=== PATIENT | male | born 1995 | race Caucasian/White ===

== ENCOUNTER 2019-04-05 09:37 | Emergency (ER) | payer BC, OTHER ==
[~2019-04-05] VITALS: Ht 182.8 cm; Wt 109.1 kg
--- NOTE | 2019-04-05 10:09 | ED Abdominal Pain ---
General Chief Complaint: Abdominal/GI Problems Stated Complaint: RT ABDOMEN PAIN Source of Information: Patient Exam Limitations: No Limitations History of Present Illness Date Seen by Provider: Apr 05, 2019 Time Seen by Provider: 10:05 Initial Comments This 24-year-old white male presents with complaint of sudden severe left flank pain radiating into his testicle. Patient has associated nausea and an episode of vomiting prior to presentation emergency department. The patient's pain began an hour ago. Past medical history was noncontributory. Patient has had no associated fever or chills. He has had no similar episode in the past. Allergies and Home Medications Allergies Coded Allergies: No Known Drug Allergies (Unverified , 04/05/19) Patient Home Medication List Home Medication List Reviewed: Yes Review of Systems Review of Systems Constitutional: No chills, No fever EENTM: No Symptoms Reported Respiratory: Denies Cough Cardiovascular: Denies Chest Pain Gastrointestinal: Denies Abdominal Pain; Nausea, Vomiting Genitourinary: Flank Pain (left) Musculoskeletal: no symptoms reported Skin: no symptoms reported Psychiatric/Neurological: No Symptoms Reported Endocrine: No Symptoms Reported Hematologic/Lymphatic: No Symptoms Reported Past [place]-Mgpsao-Edyady Hx Past Med/Social Hx: Reviewed Nursing Past Med/Soc Hx Patient Social History Recent Foreign Travel: No Contact w/Someone Who Travel: No Physical Exam Vital Signs Vital Signs - First Documented 04/05/19 10:05 Temp 36.3 Pulse 85 Resp 18 B/P (MAP) 156/85 (108) Pulse Ox 85 Capillary Refill : Height/Weight/BMI Height: '" Weight: lbs. oz. kg; BMI Method: General Appearance: WD/WN, moderate distress HEENT: normal ENT inspection Neck: normal inspection Respiratory: lungs clear Cardiovascular: regular rate, rhythm Gastrointestinal: normal bowel sounds, non tender, soft Extremities: normal range of motion Back: normal inspection Neurologic/Psychiatric: no motor/sensory deficits, alert Skin: normal color, warm/dry Progress/Results/Core Measures Results/Orders Lab Results Laboratory Tests Test 04/05/19 09:59 04/05/19 11:30 Range/Units White Blood Count 8.7 4.3-11.0 10^3/uL Red Blood Count 4.81 4.35-5.85 10^6/uL Hemoglobin 14.0 13.3-17.7 G/DL Hematocrit 41 40-54 % Mean Corpuscular Volume 85 80-99 FL Mean Corpuscular Hemoglobin 29 25-34 PG Mean Corpuscular Hemoglobin Concent 34 32-36 G/DL Red Cell Distribution Width 12.9 10.0-14.5 % Platelet Count 369 130-400 10^3/uL Mean Platelet Volume 9.1 7.4-10.4 FL Neutrophils (%) (Auto) 66 42-75 % Lymphocytes (%) (Auto) 25 12-44 % Monocytes (%) (Auto) 8 0-12 % Eosinophils (%) (Auto) 1 0-10 % Basophils (%) (Auto) 0 0-10 % Neutrophils # (Auto) 5.8 1.8-7.8 X 10^3 Lymphocytes # (Auto) 2.2 1.0-4.0 X 10^3 Monocytes # (Auto) 0.7 0.0-1.0 X 10^3 Eosinophils # (Auto) 0.1 0.0-0.3 10^3/uL Basophils # (Auto) 0.0 0.0-0.1 10^3/uL Sodium Level 139 135-145 MMOL/L Potassium Level 3.9 3.6-5.0 MMOL/L Chloride Level 107 98-107 MMOL/L Carbon Dioxide Level 18 L 21-32 MMOL/L Anion Gap 14 5-14 MMOL/L Blood Urea Nitrogen 17 7-18 MG/DL Creatinine 1.13 0.60-1.30 MG/DL Estimat Glomerular Filtration Rate > 60 BUN/Creatinine Ratio 15 Glucose Level 133 H 70-105 MG/DL Calcium Level 9.6 8.5-10.1 MG/DL Corrected Calcium 8.5-10.1 MG/DL Total Bilirubin 0.9 0.1-1.0 MG/DL Aspartate Amino Transf (AST/SGOT) 21 5-34 U/L Alanine Aminotransferase (ALT/SGPT) 27 0-55 U/L Alkaline Phosphatase 60 40-136 U/L Total Protein 7.3 6.4-8.2 GM/DL Albumin 4.7 H 3.2-4.5 GM/DL Urine Color OTHER H Urine Clarity VERY CLOUDY H Urine pH 6 5-9 Urine Specific [place] 1.020 1.016-1.022 Urine Protein 3+ H NEGATIVE Urine Glucose (UA) NEGATIVE NEGATIVE Urine Ketones 4+ H NEGATIVE Urine Nitrite NEGATIVE NEGATIVE Urine Bilirubin NEGATIVE NEGATIVE Urine Urobilinogen 1 NORMAL MG/DL Urine Leukocyte Esterase 1+ H NEGATIVE Urine RBC (Auto) 5+ H NEGATIVE Urine RBC TNTC H /HPF Urine WBC 0-2 /HPF Urine Squamous Epithelial Cells NONE /HPF Urine Crystals NONE /LPF Urine Bacteria NEGATIVE /HPF Urine Casts NONE /LPF Urine Mucus NEGATIVE /LPF Urine Culture Indicated NO My Orders Orders - ALAINA DUEÑAS MD Ct Abd/Pelvis Wo(Kidney Stone) (04/05/19 10:02) Cbc With Automated Diff (04/05/19 10:02) Comprehensive Metabolic Panel (04/05/19 10:02) Ua Culture If Indicated (04/05/19 10:02) Ketorolac Injection (Toradol Injection) (04/05/19 10:15) Ondansetron Injection (Zofran Injectio (04/05/19 10:15) Ns Iv 1000 Ml (Sodium Chloride 0.9%) (04/05/19 10:15) Fentanyl Injection (Sublimaze Injection (04/05/19 10:30) Fentanyl Injection (Sublimaze Injection (04/05/19 10:26) Hydromorphone Injection (Dilaudid Inject (04/05/19 11:30) Ondansetron Injection (Zofran Injectio (04/05/19 11:30) Medications Given in ED Current Medications Medications Dose Ordered Sig/Rafat Route Start Time Stop Time Status Last Admin Dose Admin Fentanyl Citrate 50 mcg ONCE ONCE IVP 04/05/19 10:30 04/05/19 10:31 DC 04/05/19 10:29 50 MCG Ketorolac Tromethamine 30 mg ONCE ONCE IVP 04/05/19 10:15 04/05/19 10:16 DC 04/05/19 10:13 30 MG Ondansetron HCl 4 mg ONCE ONCE IVP 04/05/19 10:15 04/05/19 10:16 DC 04/05/19 10:13 4 MG Vital Signs/I&O 04/05/19 10:05 Temp 36.3 Pulse 85 Resp 18 B/P (MAP) 156/85 (108) Pulse Ox 85 Progress Progress Note : Time: 12:03 Progress Note Laboratory radiographic evaluation demonstrated a 4 mm obstructing proximal left ureteral calculi. Patient received IV narcotics and antibiotics with significant improvement in his symptoms. I discussed the findings with the patient. A referral will be made to Dr. Alvarez. Prescriptions for hydrocodone and Zofran were prepared. Departure Impression Primary Impression: Kidney stone on left side Disposition: 01 HOME, SELF-CARE Condition: Improved Departure-Patient Inst. Decision time for Depature: 12:04 Referrals: NO,LOCAL PHYSICIAN (PCP) Primary Care Physician JUMA ALVAREZ MD Patient Instructions: Kidney Stones in Adults Add. Discharge Instructions: Vicodin, Flomax, and Zofran as prescribed. Close follow-up with urology, Dr. Alvarez. Call his office in the morning for an appointment. Return if any problems or questions. All discharge instructions reviewed with patient and/or family. Voiced understanding. Scripts Tamsulosin HCl (Flomax) 0.4 Mg Cap 0.4 MG PO DAILY for 10 Days, CAP Prov: ALAINA DUEÑAS MD 04/05/19 Hydrocodone/Acetaminophen (Vicodin 5-300 mg Tablet) 1 Each Tablet 1-2 EACH PO Q6H PRN for PAIN-MODERATE MDD 10 for 7 Days, #20 TAB Prov: ALAINA DUEÑAS MD 04/05/19 Ondansetron (Ondansetron Odt) 4 Mg Tab.rapdis 4 MG PO Q4H PRN for NAUSEA/VOMITING, #14 TAB Prov: ALAINA DUEÑAS MD 04/05/19 ALAINA DUEÑAS MD Apr 05, 2019 10:09 POS
[2019-04-05 10:10] LABS: BASOPHILS % (AUTO) 0 % (0-10); EOSINOPHILS # (AUTO) 0.1 10^3/uL (0.0-0.3); EOSINOPHILS % (AUTO) 1 % (0-10); HEMATOCRIT 41 % (40-54); LYMPHOCYTES # (AUTO) 2.2 X 10^3 (1.0-4.0); LYMPHOCYTES % (AUTO) 25 % (12-44); MEAN CORPUSCULAR HEMOGLOBIN 29 PG (25-34); MEAN CORPUSCULAR HGB CONC 34 G/DL (32-36); MEAN CORPUSCULAR VOLUME 85 FL (80-99); MEAN PLATELET VOLUME 9.1 FL (7.4-10.4); MONOCYTES # (AUTO) 0.7 X 10^3 (0.0-1.0); MONOCYTES % (AUTO) 8 % (0-12); NEUTROPHILS # (AUTO) 5.8 X 10^3 (1.8-7.8); NEUTROPHILS % (AUTO) 66 % (42-75); PLATELET COUNT 369 10^3/uL (130-400); RED CELL DISTRIBUTION WIDTH 12.9 % (10.0-14.5); WHITE BLOOD COUNT 8.7 10^3/uL (4.3-11.0)
[2019-04-05] MEDS ORDERED: KETOROLAC 30 MG/ML VIAL IVP ONE (10:15)
[2019-04-05] MEDS ORDERED: ONDANSETRON 4 MG/2 ML (SDV) Z0FRAN IVP ONE ×2 (10:15→11:30)
[2019-04-05] MEDS ORDERED: NS IV 1000 ML 1,000 ML IV SCH (10:15)
[2019-04-05 10:24] LABS: ALANINE AMINOTRANSFERASE 27 U/L (0-55); ALBUMIN 4.7 GM/DL (3.2-4.5); ALKALINE PHOSPHATASE 60 U/L (40-136); BILIRUBIN,TOTAL 0.9 MG/DL (0.1-1.0); BUN/CREATININE RATIO 15; CALCIUM 9.6 MG/DL (8.5-10.1); CARBON DIOXIDE 18 MMOL/L (21-32); CHLORIDE 107 MMOL/L (98-107); CREATININE SERUM 1.13 MG/DL (0.60-1.30); GFR ESTIMATED > 60; GLUCOSE 133 MG/DL (70-105); POTASSIUM 3.9 MMOL/L (3.6-5.0); SODIUM 139 MMOL/L (135-145); TOTAL PROTEIN 7.3 GM/DL (6.4-8.2)
[2019-04-05] MEDS ORDERED: fentaNYL INJECTION 100 MCG/2 ML AMP ONE (10:26)
--- NOTE | 2019-04-05 10:29 | Diagnostic Imaging Report ---
PROCEDURE: CT urinary tract, rule out kidney stone. TECHNIQUE: Multiple contiguous axial images were obtained through the abdomen and pelvis without the use of intravenous contrast. Auto Exposure Controls were utilized during the CT exam to meet ALARA standards for radiation dose reduction. INDICATION: Left flank pain. COMPARISON: None. FINDINGS: There is mild left-sided hydronephrosis secondary to an obstructive 4 mm stone in the proximal left ureter. The right kidney, ureter and bladder are otherwise unremarkable. Lung bases are clear. The gallbladder, remainder of the visualized solid organs and bowel is normal. The appendix is normal. The prostate is not enlarged. No inflammation seen. There is an undescended testicle within the right inguinal canal on the right. Osseous structures are unremarkable. IMPRESSION: 1. Mild left-sided hydronephrosis secondary to an obstructive 4 mm stone proximal left ureter. 2. Undescended right testicle. Dictated by: Dictated on workstation # [id number]
[2019-04-05] MEDS ORDERED: fentaNYL INJECTION 100 MCG/2 ML AMP IVP ONE (10:30)
[2019-04-05] MEDS ORDERED: HYDROmorphone 2 MG/ML VIAL (DILAUDID) IVP ONE (11:30)
[2019-04-05 11:42] LABS: BILIRUBIN,URINE NEGATIVE (NEGATIVE); CLARITY,URINE VERY CLOUDY; COLOR,URINE OTHER; GLUCOSE, URINE (UA) NEGATIVE (NEGATIVE); KETONES,URINE 4+ (NEGATIVE); LEUKOCYTE ESTERASE ,URINE 1+ (NEGATIVE); NITRITE,URINE NEGATIVE (NEGATIVE); PH,URINE 6 (5-9); PROTEIN,URINE 3+ (NEGATIVE)
[2019-04-05 11:49] LABS: BACTERIA,URINE NEGATIVE /HPF; RBC,URINE TNTC /HPF; WBC,URINE 0-2 /HPF
[2019-04-05] MEDS ORDERED: TAMS0.4C98 PO (12:07)
[2019-04-05] MEDS ORDERED: HYDR-3455 PO (12:07)
[2019-04-05] MEDS ORDERED: ONDA4TAB11 PO (12:07)
[2019-04-05 12:14] VITALS: BP 135/76
== END 2019-04-05 12:15 | disposition home or self-care (01) ==
LOC: ER 09:39
DX: N13.2 Hydronephrosis with renal and ureteral calculous obstruction (principal)
CPT/HCPCS: 36415; 74176; 80053; 81000; 85025

== ENCOUNTER 2019-05-25 11:15 | Outpatient (CLI) | payer BC ==
[~2019-05-25] VITALS: Ht 185 cm; Wt 107.0 kg
[~2019-05-25 11:15] MED LIST: HYDR-3455 PO; ONDA4TAB11 PO; TAMS0.4C98 PO
== END 2019-05-25 11:40 | disposition home or self-care (01) ==
LOC: PREOP 11:15
PROVIDERS: ATTEND Otolaryngology Otolaryngology/Facial Plastic Surgery
DX: Z01.818 Encounter for other preprocedural examination (principal)

== ENCOUNTER 2019-05-29 09:07 | Day surgery (SDC) | payer BC ==
[~2019-05-29] VITALS: Ht 185.5 cm; Wt 107.0 kg
[2019-05-29] VITALS (11 sets, daily range): BP systolic 104–144; BP diastolic 56–85
[2019-05-29] MEDS ORDERED: MIDAZOLAM 2 MG/2 ML (VERSED) VIAL IV ONE (09:30)
[2019-05-29] MEDS: LACTATED RINGERS 1,000 ML IV PRN ×2 (09:33→12:01)
[2019-05-29 09:51] LABS: BASOPHILS % (AUTO) 0 % (0-10); EOSINOPHILS % (AUTO) 0 % (0-10); HEMATOCRIT 43 % (40-54); HEMOGLOBIN 14.7 G/DL (13.3-17.7); LYMPHOCYTES # (AUTO) 2.2 X 10^3 (1.0-4.0); LYMPHOCYTES % (AUTO) 27 % (12-44); MEAN CORPUSCULAR HEMOGLOBIN 29 PG (25-34); MEAN CORPUSCULAR HGB CONC 34 G/DL (32-36); MEAN CORPUSCULAR VOLUME 86 FL (80-99); MEAN PLATELET VOLUME 9.3 FL (7.4-10.4); MONOCYTES # (AUTO) 0.7 X 10^3 (0.0-1.0); MONOCYTES % (AUTO) 8 % (0-12); NEUTROPHILS # (AUTO) 5.3 X 10^3 (1.8-7.8); NEUTROPHILS % (AUTO) 64 % (42-75); PLATELET COUNT 380 10^3/uL (130-400); RED CELL DISTRIBUTION WIDTH 13.1 % (10.0-14.5); WHITE BLOOD COUNT 8.3 10^3/uL (4.3-11.0)
--- NOTE | 2019-05-29 10:51 | Progress Note-Pre Operative ---
Pre-Operative Progress Note H&P Reviewed The H&P was reviewed, patient examined and no changes noted. Date Seen by Provider: May 29, 2019 Time Seen by Provider: 10: Date H&P Reviewed: May 29, 2019 Time H&P Reviewed: :30 Pre-Operative Diagnosis: Tons Hyper, Rec Tons MALI PAULINO MD May 29, 2019 10:51
[2019-05-29] MEDS ORDERED: ONDANSETRON 4 MG/2 ML (SDV) Z0FRAN ONE (11:08)
[2019-05-29] MEDS ORDERED: LIDOCAINE PF 2% 5 ML (XYLOCAINE) VIAL ONE (11:08)
[2019-05-29] MEDS ORDERED: DEXAMETHASONE 10 MG/ML (DECADRON) 1 ML VIAL ONE (11:08)
[2019-05-29] MEDS ORDERED: proPOfol 200 MG/20 ML (DIPRIVAN) VIAL IV ONE (11:08)
[2019-05-29] MEDS ORDERED: MIDAZOLAM 2 MG/2 ML (VERSED) VIAL ONE (11:09)
[2019-05-29] MEDS ORDERED: fentaNYL INJECTION 100 MCG/2 ML AMP ONE (11:09)
[2019-05-29] MEDS ORDERED: ROCURONIUM 10 MG/ML 5 ML SYRINGE IV ONE (12:09)
[2019-05-29] MEDS ORDERED: NS IV 1000 ML 1,000 ML IV SCH (12:11)
--- NOTE | 2019-05-29 12:11 | Progress Note-Post Operative ---
Post-Operative Progess Note Surgeon (s)/Material Combiner (s) Surgeon MALI PAULINO MD Material Combiner n/a Pre-Operative Diagnosis Tons Hyper, Rec Tons Post-Operative Diagnosis same Post-Op Procedure Note Date of Procedure: May 29, 2019 Name of Procedure Performed: Tonsillectomy Description & Findings Description and Findings: n/a Anesthesia Type get Estimated Blood Loss minimal Packing none. Specimen(s) collected/removed tonsils MALI PAULINO MD May 29, 2019 12:11
[2019-05-29] MEDS ORDERED: fentaNYL INJECTION 100 MCG/2 ML AMP IVP ONE (12:15)
[2019-05-29] MEDS ORDERED: APAP 325 MG/10.15 ML LIQ (TYLENOL) UDC PO PRN (12:15)
[2019-05-29] MEDS ORDERED: ONDANSETRON 4 MG/2 ML (SDV) Z0FRAN IVP PRN (12:15)
[2019-05-29] MEDS ORDERED: morphine INJ 10 MG/ML 1ML (SYR OR VIAL) IVP ONE (12:15)
[2019-05-29] MEDS ORDERED: MEPERIDINE (DEMEROL) INJ 50 MG/ML IVP ONE (12:15)
[2019-05-29] MEDS ORDERED: HYDROcodone/APAP 7.5MG-325 MG/15 ML (LORTAB) UDC PO PRN (12:15)
[2019-05-29] MEDS ORDERED: SEVOFLURANE (ULTANE) 15 ML INHAL SOLN ONE (12:21)
[2019-05-29] MEDS ORDERED: HYDROcodone/APAP 7.5MG-325 MG/15 ML (LORTAB) UDC ONE (13:08)
[2019-05-29] MEDS ORDERED: AMOX250S5 PO (13:29)
[2019-05-29] MEDS ORDERED: TETRACAINESUCKERS MT (13:29)
[2019-05-29] MEDS ORDERED: HYDR15SO8 PO (13:29)
[2019-05-29] MEDS ORDERED: DEXAINTSOL PO (13:29)
--- NOTE | 2019-05-29 13:32 | Anesthesia-General Post-Op ---
General Patient Condition Mental Status/LOC: Same as Preop Cardiovascular: Satisfactory Nausea/Vomiting: Absent Respiratory: Satisfactory Pain: Controlled Complications: Absent Post Op Complications Complications None Follow Up Care/Instructions Patient Instructions None needed. Anesthesia/Patient Condition Patient Condition Patient is doing well, no complaints, stable vital signs, no apparent adverse anesthesia problems. No complications reported per nursing. SIXTO CLARK CRNA May 29, 2019 13:32
== END 2019-05-29 15:00 | disposition home or self-care (01) ==
LOC: SDC 09:07
PROVIDERS: ATTEND Otolaryngology Otolaryngology/Facial Plastic Surgery
DX: J35.01 Chronic tonsillitis (principal); J35.3 Hypertrophy of tonsils with hypertrophy of adenoids
CPT/HCPCS: 36415; 85025; 87081

== ENCOUNTER 2021-03-22 06:50 | Emergency (ER) | payer BC ==
[~2021-03-22] VITALS: Ht 184.4 cm; Wt 108.0 kg
[~2021-03-22 06:50] MED LIST changes: +AMOX250S5 PO; +DEXAINTSOL PO; +HYDR15SO8 PO; -TAMS0.4C98 PO; +TETRACAINESUCKERS MT; +TMSL.4C PO
[2021-03-22] MEDS ORDERED: LIDOCAINE 1% INJ 20 ML 20 ML VIAL ONE (07:10)
[2021-03-22] MEDS ORDERED: LIDOCAINE 1% INJ 20 ML 20 ML VIAL INJ ONE (07:15)
--- NOTE | 2021-03-22 07:59 | ED Upper Extremity ---
General Chief Complaint: Laceration Stated Complaint: LEFT HAND LAC Nursing Triage Note: AMB TO ED WITH LACERATION TO L PALM OF HAND. Source: patient Exam Limitations: no limitations History of Present Illness Date Seen by Provider: Mar 22, 2021 Time Seen by Provider: 07:00 Initial Comments This 26-year-old gentleman presents to the emergency room with laceration on the palmar aspect of his left hand after falling with a cup of coffee in his hand. 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 He does not appear to have any tendon dysfunction. Bleeding is controlled. He is up-to-date on his tetanus immunization. He denies any other injuries. Onset: just prior to arrival Allergies and Home Medications Allergies Coded Allergies: No Known Drug Allergies (Unverified , 05/25/19) Patient Home Medication List Home Medication List Reviewed: Yes Amoxicillin (Amoxicillin) 250 Mg/5 Ml Susp, 2 TSP PO BID Prescribed by: REYNA KAUR on 05/29/19 1329 Dexamethasone (Decadron Intensol Oral Solution (Repackaging)) 1 Mg/1 Ml Nivia, 2 TSP PO DAILY PRN for PAIN Prescribed by: REYNA KAUR on 05/29/19 1329 Hydrocodone/Acetaminophen (Hydrocodon-Acetamin 7.5-325/15 ML) 15 Ml Solution, 2- 3 TSP PO Q4H Prescribed by: REYNA KAUR on 05/29/19 1329 Tetracaine (Tetracaine Suckers) Sucker Ea, 1 EA MT UD PRN for PAIN Prescribed by: REYNA KAUR on 05/29/19 1329 Review of Systems Constitutional: no symptoms reported Musculoskeletal: see HPI Skin: see HPI Psychiatric/Neurological: No Symptoms Reported Past Jhqdzzv-Ibgvjb-Fhanqy Hx Patient Social History Substance use?: No Alcohol Use?: No Immunizations Up To Date First/Initial COVID19 Vaccinat: SEPTEMBER Second COVID19 Vaccination [place]: OCTOBER COVID19 Vaccine 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 Seasonal Allergies Seasonal Allergies: No Past Medical History Surgeries: Yes (wisdom, KIDNEY STONES) Respiratory: No Cardiac: No Neurological: No Sexually Transmitted Disease: No HIV/AIDS: No Genitourinary: No Gastrointestinal: No Musculoskeletal: No Endocrine: No HEENT: Yes Tonsilitis Loss of Vision: Denies Hearing Impairment: Denies Cancer: No Psychosocial: No Integumentary: No Blood Disorders: No Adverse Reaction/Blood Tranf: No (N/A) Physical Exam Vital Signs Vital Signs - First Documented 03/22/21 06:59 Temp 37.1 Pulse 90 Resp 18 B/P (MAP) 157/106 (123) Pulse Ox 98 O2 Delivery Room Air Capillary Refill : Height, Weight, BMI Height: '" Weight: lbs. oz. kg; 31.00 BMI Method: General Appearance: WD/WN, no apparent distress Wrist: Yes normal inspection, Yes non-tender, Yes no evidence of injury, Yes normal ROM Hand: normal ROM, Left (2 cm laceration on the palmar aspect of the left hand. Laceration extends deep into the subcutaneous tissue but does not appear to lacerate any tendons. Full flexion and extension are intact. No debris visible within the wound.) Neurologic/Psychiatric: no motor/sensory deficits, alert, normal mood/affect, oriented x 3 Skin: normal color, warm/dry, other (See above) Procedures/Interventions Wound Location: Upper Extremities Other Wound Location Palmar aspect of left hand Wound Length (cm): 2 Wound's Depth, Shape: linear, sub Q Wound Explored: clean Irrigated w/ Saline (ccs): 500 Betadine Prep?: Yes Anesthesia: 1% Lidocaine Volume Anesthetic (ccs): 5 Suture: Prolene Suture Size: 5-0 Number of Sutures: 4 Layer Closure?: 1 Number Deep Layer Sutures: 0 Sterile Dressing Applied?: Yes Progress Wound was evaluated. Lacerated surface was sprayed with lidocaine. Skin was th en cleaned with alcohol. Local lidocaine injection was administered. Wound and hand were then scrubbed with saline and chlorhexidine. Wound was rinsed with syringe with saline and chlorhexidine. Wound was then explored using hemostats to separate tissue and visually inspect the wound. No foreign bodies were identified. There appeared to be no tendon lacerations. Flexion strength was intact. Using hemostats, wound was opened and again washed with saline and chlorhexidine. It was then rinsed with saline. Betadine was then applied. Wound was approximated with 5-0 Prolene interrupted sutures. Progress/Results/Core Measures Results/Orders My Orders Orders - JOSH SOLIMAN MD Lidocaine 1% Inj 20 Ml (Xylocaine 1% Inj (03/22/21 07:15) Lidocaine 1% Inj 20 Ml (Xylocaine 1% Inj (03/22/21 07:10) Vital Signs/I&O Blood Pressure Mean: 123 Departure Impression Primary Impression: Hand laceration Qualified Codes: S61.412A - Laceration without foreign body of left hand, initial encounter Disposition: 01 HOME, SELF-CARE Condition: Improved Departure-Patient Inst. Referrals: NO,LOCAL PHYSICIAN (PCP/Family) Primary Care Physician Patient Instructions: Laceration Repair With Stitches (DC) Add. Discharge Instructions: Keep the wound clean and dry except for normal hand washing and showering. Do not submerge until sutures are removed. Monitor the wound for signs of infection such as increasing redness, increasing swelling, puslike drainage, or fever. Return to care promptly if you notice the symptoms. You may continue using your left hand as long as you do not disrupt the sutures or apply significant pressure to them. Keep the wound covered when active, sleeping, or in dirty environments. Leave open to air when you are at rest in a clean environment. Return in 7 to 10 days to have sutures removed. You do not need an appointment. Call with questions or concerns. You may use Tylenol and/or ibuprofen for pain. Return to care if you have any complications, need a wound check, or have any other urgent concerns. All discharge instructions reviewed with patient and/or family. Voiced understanding. Work/School Note: Work Release Form Date Seen in the Emergency Department: Mar 22, 2021 Return to Work: Mar 23, 2021 Other Restrictions Listed Below: Cover wound until sutures removed. No forceful activity with the left hand JOSH SOLIMAN MD Mar 22, 2021 07:59
[2021-03-22 08:06] VITALS: BP 157/106
== END 2021-03-22 08:06 | disposition home or self-care (01) ==
LOC: EDUNIT# 06:50 → ER 06:54
DX: S61.412A Laceration without foreign body of left hand, initial encounter (principal); W26.8XXA Contact with other sharp object(s), not elsewhere classified, initial encounter
CPT/HCPCS: 12002

== ENCOUNTER 2021-03-31 10:34 | Emergency (ER) | payer BC ==
[~2021-03-31] VITALS: Ht 185 cm; Wt 104.0 kg
[2021-03-31 10:48] VITALS: BP 141/96
== END 2021-03-31 10:48 | disposition home or self-care (01) ==
LOC: EDUNIT# 10:34 → ER 10:35
DX: Z48.02 Encounter for removal of sutures (principal)